=== PATIENT | female | born 1985 | race African-American/Black ===

== ENCOUNTER 2018-12-27 22:54 | Emergency (ER) | payer SELFPAY ==
[2018-12-27 23:55] LABS: Bilirubin Negative (Negative); Blood, Urine Negative (Negative); Clarity CLOUDY (Clear); Glucose, Urine (Dipstick) Negative (Negative); Leukocyte Negative (Negative); Nitrite Negative (Negative); Protein, Urine (Dipstick) 30 mg/dL (Neg-Trace); Specific Gravity, Urine 1.027 (1.002-1.036); Urobilinogen 0.2 mg/dL (0.2-1.0); pH, Urine 5.5 (5.0-9.0)
[2018-12-27 23:57] LABS: Bacteria/HPF None Seen HPF (None Seen); Hyaline Casts/LPF 7-10 HYALINE CAST LPF (0-3 Hyaline); Pathc Cast-AUWi Flag 1.08 (0-2.49)
[2018-12-28 00:05] LABS: #Eosinphils 0.1 thou/uL (0.0-0.7); #Lymphocytes 1.3 thou/uL (1.20-3.40); #Monocytes 0.6 thou/uL (0.11-0.59); #Neutrophils 3.9 thou/uL (1.40-6.50); %Eosinophils 1.3 % (0.0-10.0); %Lymphocytes 22.6 % (21.0-51.0); %Monocytes 9.9 % (0.0-10.0); %Neutrophils 66.1 % (42.0-75.0); Hemoglobin 12.8 g/dL (12.0-16.0); Mean Corpuscular HGB CONC 33.2 g/dL (32.0-36.0); Mean Corpuscular Hemoglobin 27.2 pg (27.0-31.0); Mean Corpuscular Volume 81.9 fL (78.0-98.0); Mean Platelet Volume 6.3 fL (7.4-10.4); Platelet Count 342 thou/uL (130-400); RBC Distribution Width 11.4 % (11.5-14.5); White Blood Cell (WBC) Count 5.9 thou/uL (4.8-10.8)
[2018-12-28 00:16] LABS: BHCG - Serum Negative (NEGATIVE); Pregs Control Background? CLEAR/WHITE (CLR/WHITE); Pregs Control Bar Appear? YES (CONTROL BAR)
[2018-12-28 00:23] LABS: ALT (SGPT) 45 U/L (8-55); AST (SGOT) 35 U/L (5-34); Albumin 4.3 g/dL (3.5-5.0); Alkaline Phosphatase 96 U/L (40-150); Anion Gap 14 mmol/L (10-20); BUN (Urea Nitrogen) 6 mg/dL (7.0-18.7); Bilirubin, Total 0.4 mg/dL (0.2-1.2); Calc. Creatinine Clearance 0 mL/min (70-130); Calcium 9.8 mg/dL (7.8-10.44); Carbon Dioxide 26 mmol/L (22-29); Chloride 100 mmol/L (98-107); Estimated GFR-MDRD 88; Globulin 4.9 g/dL (2.4-3.5); Glucose 122 mg/dL (70-105); Lipase 8 U/L (8-78); Potassium 3.8 mmol/L (3.5-5.1); Protein, Total 9.2 g/dL (6.0-8.3); Sodium 136 mmol/L (136-145)
[2018-12-28] MEDS ORDERED: Promethazine 25 MG TAB ONE (01:50)
== END 2018-12-28 02:49 | disposition home or self-care (01) ==
LOC: ERS 22:54
DX: R11.2 Nausea with vomiting, unspecified (principal); R19.7 Diarrhea, unspecified; R10.13 Epigastric pain; F32.9 Major depressive disorder, single episode, unspecified
CPT/HCPCS: 36415; 80053; 81003; 81015; 83690; 84703; 85025; 99284; Q0169

== ENCOUNTER 2018-12-30 19:21 | Observation (INO) | payer SELFPAY ==
[~2018-12-30 19:21] MED LIST: ISOVUE-370 76%-LOCM 1 ML ONE
[2018-12-30 19:49] LABS: #Eosinphils 0.1 thou/uL (0.0-0.7); #Lymphocytes 1.6 thou/uL (1.20-3.40); #Monocytes 0.7 thou/uL (0.11-0.59); #Neutrophils 4.2 thou/uL (1.40-6.50); %Basophils 0.4 % (0.0-1.0); %Eosinophils 1.2 % (0.0-10.0); %Lymphocytes 24.3 % (21.0-51.0); %Monocytes 10.8 % (0.0-10.0); %Neutrophils 63.3 % (42.0-75.0); Mean Corpuscular HGB CONC 32.5 g/dL (32.0-36.0); Mean Corpuscular Hemoglobin 26.8 pg (27.0-31.0); Mean Corpuscular Volume 82.4 fL (78.0-98.0); Mean Platelet Volume 6.4 fL (7.4-10.4); Platelet Count 340 thou/uL (130-400); RBC Distribution Width 11.5 % (11.5-14.5); Red Blood Cell (RBC) Count 4.87 mill/uL (4.20-5.40); White Blood Cell (WBC) Count 6.6 thou/uL (4.8-10.8)
[2018-12-30] MEDS ORDERED: Promethazine HCl 25 MG/ML VIAL ONE (19:57)
[2018-12-30] MEDS ORDERED: Morphine 4 MG/ML VIAL ONE (19:57)
--- NOTE | 2018-12-30 20:00 | RAD ---
AP view chest. HISTORY: Arrhythmia AP view chest is obtained. The lungs are well aerated. No evidence of active intrathoracic disease se en. IMPRESSION: normal one view chest.
[2018-12-30 20:02] LABS: BHCG - Serum Negative (NEGATIVE); Pregs Control Background? CLEAR/WHITE (CLR/WHITE); Pregs Control Bar Appear? YES (CONTROL BAR)
[2018-12-30 20:11] LABS: ALT (SGPT) 48 U/L (8-55); AST (SGOT) 40 U/L (5-34); Albumin 4.4 g/dL (3.5-5.0); Alkaline Phosphatase 88 U/L (40-150); Anion Gap 16 mmol/L (10-20); BUN (Urea Nitrogen) 10 mg/dL (7.0-18.7); Bilirubin, Total 0.6 mg/dL (0.2-1.2); Calc. Creatinine Clearance 0 mL/min (70-130); Calcium 9.8 mg/dL (7.8-10.44); Carbon Dioxide 24 mmol/L (22-29); Chloride 96 mmol/L (98-107); Estimated GFR-MDRD 90; Glucose 108 mg/dL (70-105); Lipase 17 U/L (8-78); Potassium 3.4 mmol/L (3.5-5.1); Protein, Total 9.4 g/dL (6.0-8.3); Sodium 133 mmol/L (136-145)
[2018-12-30 20:31] LABS: Bilirubin Small (Negative); Blood, Urine Negative (Negative); Clarity CLOUDY (Clear); Glucose, Urine (Dipstick) Negative (Negative); Leukocyte Negative (Negative); Nitrite Negative (Negative); Protein, Urine (Dipstick) 100 mg/dL (Neg-Trace); Specific Gravity, Urine 1.031 (1.002-1.036); pH, Urine 5.5 (5.0-9.0)
[2018-12-30 20:32] LABS: Bacteria/HPF None Seen HPF (None Seen)
[2018-12-30 20:33] LABS: Hyaline Casts/LPF 0-3 HYALINE CAST LPF (0-3 Hyaline)
--- NOTE | 2018-12-30 21:24 | CT ---
Contrast-enhanced images abdomen pelvis. HISTORY: Abdominal pain. Contrast-enhanced images of the abdomen pelvis demonstrate the lung bases to be unremarkable. No evidence of free intraperitoneal air seen. The liver, spleen, gallbladder, pancreas, adrenal gland s and kidneys are unremarkable. Note distended evidence of small bowel seen. A normal appendix is visualized. The colon is unremarkable and decompressed. No significant evidence of vascular abnormality seen. The uterus and ovaries are unremarkable. Mild inguinal lymphadenopathy is present. IMPRESSION: unremarkable contrast-enhanced CT images of the abdomen pelvis.
[2018-12-30 22:01] LABS: Medtox Reader # READER 4; THC/Cannabinoid Screen Detected (NotDetected)
[2018-12-30 22:02] LABS: Amphetamine Not Detected (NotDetected); Barbiturates Screen Not Detected (NotDetected); Benzodiazepine Screen Not Detected (NotDetected); Cocaine Metabolite Screen Not Detected (NotDetected); Medtox Control Line Valid? VALID (VALID); Methadone Not Detected (NotDetected); Methamphetamine Not Detected (NotDetected); Opiate Screen Not Detected (NotDetected); Oxycodone Screen Not Detected (NotDetected); Phencyclidine (PCP) Not Detected (NotDetected); Tricyclic Screen Not Detected (NotDetected)
--- NOTE | 2018-12-30 22:26 | PDOC.FPRHP ---
- History of Present Illness Chief Complaint: nausea, vomiting, abdominal pain History of Present Illness: The patient is a 33YO AAF with no significant PMH who presented to the ED with a CC of persistent nausea and vomiting with associated abdominal pain that has been ongoing since Sunday. Per the patient, she was in her usual state of health until Sunday morning when she woke up feeling nauseous. She states that depsite this she went to work but the nausea persisted. Around 16:00 on Sunday, she started vomiting and could not stop. Per chart review, she vomited about 7- 8 times and therefore decided to proceed to the ER for further evaluation. She reported some associated epigastric pain at that time as well. She describes the pain as constant, sharp, and nonradiating in nature that is relieved with laying on her side but worsening by laying flat or sitting completely upright. The patient reports being given a dose of IV phenergan which relieve her nausea and vomiting and was then sent home with a phenergan prescription. The patient actually reported gradual improvement in her symptoms over the next 2 days; however, while at work today she again developed a slowly worsening epigastric abdominal pain that increased to a level of 10/10 in severity by ~1600 when she get home. She tried taking a dose of phenergan for the pain but vomited shortly after. The patient stated that she then developed some chest pain along with her abdominal pain so she decided to go to the ER again for further evaluation. The patient denied any associated fever/chills, hematemesis, diarrhea, hematochezia, melena, or recent sick contacts. She also denied any orthostasis as well as chest pain at the time of the exam. Of note, the patient was questioned by myself and the admitting ER practitioner regarding drug use and denied any drug use on both occasions. ED Course: 4mg IV morphine, 20mg bentyl, 25mg IV phenergan, 1L NS - Allergies/Adverse Reactions Allergies Allergy/AdvReac Type Severity Reaction Status Date / Time ondansetron [From Zofran] AdvReac Unknown Nausea Verified 12/31/18 00:29 - Home Medications Medication Instructions Recorded Confirmed Type Acetaminophen [Tylenol Regular 650 mg PO Q4H PRN tab 12/31/18 Rx Strength] Ondansetron [Zofran ODT] 8 mg PO Q6HR PRN #20 tab 12/31/18 Rx Promethazine HCl [Phenergan] 25 mg NV Q6H PRN #10 supp 12/31/18 Rx - History PMHx: none PSHx: none FHx: Mother & grandmother- HTN Social: Lives alone in [place]. Denies any tobacco use. Reports using MJ only once 2 months ago. Reports occasionally drinking a glass of wine. - Review of Systems General: reports: weight/appetite/sleep changes, fatigue. denies: fever/chills Eyes: denies: vision changes ENT: reports: other (no sore throat). denies: nasal congestion Respiratory: denies: cough, shortness of breath Cardiovascular: denies: chest pain, palpitation Gastrointestinal: reports: nausea, vomiting, abdominal pain. denies: diarrhea, constipation, GI bleeding Genitourinary: reports: other (no hematuria). denies: dysuria Skin: denies: rashes, lesions Musculoskeletal: reports: pain. denies: arthritis/arthralgias Neurological: denies: syncope, seizure Psychological: denies: anxiety, depression - Vital signs BP: 130/102 HR: 94 RR: 16 Tmax: 99.5F Pox: 97% on RA Wt: 92.99kg - Physical Exam Constitutional: NAD, awake, alert and oriented, well developed HEENT: normocephalic and atraumatic, conjunctiva clear, grossly normal vision, grossly normal hearing, MMM, oropharynx clear Neck: supple, FROM Heart: RRR, normal S1/S2, no murmurs/rubs/gallops, pulses present, no edema Lungs: CTAB, no respiratory distress, good air movement, no rales/rhonchi, no wheezing, no retractions Abdomen: soft, other (hypoactive bowel sounds with TTP all across upper abdomen but no rebound or guarding noted) Musculoskeletal: normal structure, ROM grossly normal Neurological: no focal deficit, CN II-XII intact (grossly) Skin: no rash/lesions, good turgor, capillary refill <2 seconds, no jaundice Heme/Lymphatic: no unusual bruising or bleeding, no purpura, no petechia Psychiatric: normal mood and affect, good judgment and insight, intact recent and remote memory FMR H&P: Results - Labs Result Diagrams: 12/30/18 19:41 12/31/18 04:30 Lab results: WBC 6.6 thou/uL (4.8-10.8) 12/30/18 19:41 Hgb 13.0 g/dL (12.0-16.0) 12/30/18 19:41 Hct 40.2 % (36.0-47.0) 12/30/18 19:41 MCV 82.4 fL (78.0-98.0) 12/30/18 19:41 Plt Count 340 thou/uL (130-400) 12/30/18 19:41 Neutrophils % 63.3 % (42.0-75.0) 12/30/18 19:41 Sodium 133 mmol/L (136-145) L 12/30/18 19:41 Potassium 3.4 mmol/L (3.5-5.1) L 12/30/18 19:41 Chloride 96 mmol/L (98-107) L 12/30/18 19:41 Carbon Dioxide 24 mmol/L (22-29) 12/30/18 19:41 BUN 10 mg/dL (7.0-18.7) 12/30/18 19:41 Creatinine 0.89 mg/dL (0.6-1.1) 12/30/18 19:41 Glucose 108 mg/dL (70-105) H 12/30/18 19:41 Calcium 9.8 mg/dL (7.8-10.44) 12/30/18 19:41 Total Bilirubin 0.6 mg/dL (0.2-1.2) 12/30/18 19:41 AST 40 U/L (5-34) H 12/30/18 19:41 ALT 48 U/L (8-55) 12/30/18 19:41 Alkaline Phosphatase 88 U/L (40-150) 12/30/18 19:41 Creatine Kinase 125 U/L (29-168) 12/30/18 19:41 Serum Total Protein 9.4 g/dL (6.0-8.3) H 12/30/18 19:41 Albumin 4.4 g/dL (3.5-5.0) 12/30/18 19:41 Lipase 17 U/L (8-78) 12/30/18 19:41 Urine Ketones 80 mg/dL (Negative) H 12/30/18 20:15 Urine Blood Negative (Negative) 12/30/18 20:15 Urine Nitrite Negative (Negative) 12/30/18 20:15 Ur Leukocyte Esterase Negative (Negative) 12/30/18 20:15 Urine RBC 4-6 HPF (0-3) 12/30/18 20:15 Urine WBC 7-10 HPF (0-3) H 12/30/18 20:15 Ur Squamous Epith Cells 4-6 HPF (0-3) H 12/30/18 20:15 Urine Bacteria None Seen HPF (None Seen) 12/30/18 20:15 - EKG Interpretation EKG: NSR - Radiology Interpretation Chest x-ray Status: report reviewed by me (unremarkable) CT scan - abdomen Status: report reviewed by me (unremarkable) FMR H&P: A/P - Problem List (1) Nausea and vomiting Status: Acute Code(s): R11.2 - NAUSEA WITH VOMITING, UNSPECIFIED (2) Hyponatremia Status: Acute Code(s): E87.1 - HYPO-OSMOLALITY AND HYPONATREMIA (3) Hypokalemia Status: Acute Code(s): E87.6 - HYPOKALEMIA (4) Ketonuria Status: Acute Code(s): R82.4 - ACETONURIA - Plan 33YOF with no significant PMH who presented to the ED complaining of persistent nausea and vomiting with associated abdominal pain that has been ongoing since Sunday. Nausea and vomiting 2/2 viral gastroenteritis vs. cannabis hyperemesis syndrome: Most likely etiologies s/p lab & imaging work-up include viral gastroenteritis vs. cannabis hyperemesis syndrome. Patient had a low grade temp on presentation and was tachycardic but had no white count and LFTs were WNLs. However, an abdominal CT was obtained which was WNLs ruling out any intra-abdominal infection that could explain her symptoms. Her UA also showed only ketones and protein with no signs of a UTI. Lastly, her UDS was + for MJ but the patient denied any use on initial questioning. - Will continue mIVFs with NS @ 130mL/hr & try PRN IV zofran Q6H despite patient reporting vomiting as an allergic reaction to zofran as patient is likely reporting this to get phenergan instead. Will also try a GI cocktail to help with her abdominal pain. Otherwise, will have PRN PO and NV tylenol available as patient received morphine and bentyl in the ED. - Will continue to monitor electrolytes and LFTs with a repeat CMP in the AM. Mild hypovlemia: - Will continue mIVFs with NS @ 130mL/hr as patient is s/p 1L of NS in the ED. hypokalemia: - K 3.4 on presentation. Will add 20mEq in her IVFs and recheck in the AM. hyponatremia: - Na of 133 on presentation. Likely 2/2 vomiting and decreased PO intake. - Will get a repeat CMP in the AM to monitor for improvement. Ketonuria: - UA significant for 80 ketones c/w hypovolemia from nausea, vomiting, and decreased PO intake. - s/p 1L NS in the ER. Will continue mIVFs w/ NS @ 130mL/hr overnight. Elevated AST: - AST mildly elevated at 40 on presentation but other LFTs were WNLs. Likely 2/ 2 mild hypovolemia. Will hydrate overnight with IVFs and recheck in the AM. Marijuana Use: - Patient not forthcoming regarding this initially but reported a single remote use ~2 months ago. However, UDS was + on admission for cannabis. Will encourage cessation. Dispo: Will admit to medical obs overnight and continue IVF resuscitation and IV nausea control. Anticipated LOS <2 midnights pending clinical course. GI PPx: none DVT PPx: lovenox IVFs: LR @ 130mL/hr Abx: none indicated CODE STATUS: FULL CODE FMR H&P: Upper Level - Pertinent history 33 yo AAF with no reported PMH presenting to the ER with nausea and vomiting over the last few days. Pt denies illicit drug use but UDS positive for marijuana. - Pertinent findings VSS Gen: NAD CV: RRR Resp: CTAB - Plan Date/Time: 12/30/186 I, Perico Hernandez MD PGY3, have evaluated this patient and agree with findings/ plan as outlined by internet retailer resident. Pertinent changes/additions are listed here. 1. Cannabis Hyperemesis Syndrome -Admit to observation for symptomatic management and IVF resuscitation. FULL code PPx: Lovenox for VTE, no GI indicated. disposition: Admit to observation for anticipated length of stay less than two midnights, pending clinical course. Addendum - Attending - Attending Attestation Date/Time: 12/31/181901 I personally evaluated the patient and discussed the management with Dr. Jones and David last night at time of admission. See my separate note. I agree with the History, Examination, Assessment and Plan documented above with any addition or exceptions noted below.
[2018-12-31] MEDS ORDERED: Promethazine HCl 25 MG/ML VIAL IM/IV PRN (00:11)
[2018-12-31] MEDS ORDERED: Ondansetron PF 4 MG/2 ML Vial IVP PRN (00:12)
[2018-12-31] MEDS ORDERED: Acetaminophen 650 MG Suppository PR PRN (00:12)
[2018-12-31] MEDS ORDERED: Acetaminophen 325 MG TAB PO PRN (00:12)
[2018-12-31] MEDS ORDERED: Sodium Chloride 0.9% 1,000 ML IV SCH (00:15)
--- NOTE | 2018-12-31 00:26 | PDOC.EVN ---
Event Note - Event Note Event Note: Date/Time: 12/31/18 0025 I personally evaluated the patient and discussed the management with Dr. Jones. The H&P is pending. I agree with the History, Examination, Assessment and Plan as discussed.
[2018-12-31] MEDS ORDERED: Potassium Chloride 20 MEQ in Premix Bag 1 BAG IVPB SCH (00:30)
[2018-12-31] MEDS ORDERED: Lidocaine 2% Viscous Solution 10 ML, Aluminum & Magnesium Hydroxide 30 ML SSW SCH (00:30)
[2018-12-31 00:35] VITALS: BMI 34.0
[2018-12-31] MEDS: Sodium Chloride 0.9% 1,000 ML IV SCH ×3 (01:22→12:29)
[2018-12-31 06:23] LABS: ALT (SGPT) 42 U/L (8-55); AST (SGOT) 36 U/L (5-34); Albumin 4.1 g/dL (3.5-5.0); Alkaline Phosphatase 82 U/L (40-150); Anion Gap 15 mmol/L (10-20); BUN (Urea Nitrogen) 6 mg/dL (7.0-18.7); Bilirubin, Total 0.5 mg/dL (0.2-1.2); Calc. Creatinine Clearance 151 mL/min (70-130); Calcium 9.3 mg/dL (7.8-10.44); Carbon Dioxide 21 mmol/L (22-29); Chloride 99 mmol/L (98-107); Estimated GFR-MDRD Greater than 90; Globulin 4.6 g/dL (2.4-3.5); Glucose 99 mg/dL (70-105); Potassium 4.4 mmol/L (3.5-5.1); Protein, Total 8.7 g/dL (6.0-8.3); Sodium 131 mmol/L (136-145)
--- NOTE | 2018-12-31 07:56 | PDOC.FM ---
- Subjective Subjective: Pt feeling better this AM, tolerating PO water in small amounts, no vomiting since yesterday, has not tried any foods yet. Reports improved but persistent abdominal pain. - Objective Vital Signs & Weight: Vital Signs (12 hours) Temp Pulse Resp BP Pulse Ox 12/31/18 03:13 97.9 F 75 16 145/89 H 96 12/30/18 23:53 98.2 F 73 16 149/87 H 97 Weight Weight 92.669 kg I&O: 12/30/18 12/31/18 01/01/19 06:59 06:59 06:59 Intake Total 820 Output Total 750 Balance 70 Result Diagrams: 12/30/18 19:41 12/31/18 04:30 Phys Exam - Physical Examination Constitutional: NAD HEENT: moist MMs, sclera anicteric Neck: supple, full ROM Respiratory: no wheezing, no rales, clear to auscultation bilateral Cardiovascular: RRR, no significant murmur Gastrointestinal: soft mild epigastric ttp Musculoskeletal: no edema, pulses present Neurological: normal sensation, moves all 4 limbs Lymphatic: no nodes Psychiatric: normal affect, A&O x 3 Skin: no rash, normal turgor Dx/Plan (1) Nausea and vomiting Code(s): R11.2 - NAUSEA WITH VOMITING, UNSPECIFIED Status: Acute (2) Hypokalemia Code(s): E87.6 - HYPOKALEMIA Status: Acute (3) Hyponatremia Code(s): E87.1 - HYPO-OSMOLALITY AND HYPONATREMIA Status: Acute (4) Ketonuria Code(s): R82.4 - ACETONURIA Status: Acute - Plan Plan: Nausea and vomiting 2/2 viral gastroenteritis vs. cannabis hyperemesis syndrome A- Improved, etiology likely cannabis induced vs viral gastroenteritis. WBC wnl. CT abd/pelv wnl. hydrated on exam. P- Will continue mIVFs with NS @ 130mL/hr, wean with improved PO intake -PRN IV zofran Q6H (despite patient reporting vomiting as an allergic reaction to zofran, pt has had improvement thus far with zofran in hospital) -PRN PO and MS tylenol Elevated AST A- AST mildly elevated at 40 on presentation but other LFTs were WNLs. Likely 2/ 2 mild hypovolemia. P- continue hydration -consider recheck this PM vs f/u outpt hyponatremia A- likely hypovolemic considering hpi, Na of 133 on presentation-> 131. P- continue fluid resuscitation Ketonuria A- UA significant for 80 ketones, pt likely in ketosis 2/2 decreased PO intake etc. P- continue prn zofran, encourage PO intake Mild hypovlemia -per plan above hypokalemia: -resolved Marijuana Use -Patient not forthcoming regarding this initially but reported a single remote use ~2 months ago. However, UDS was + on admission for cannabis. Will encourage cessation. Dispo: possible DC today pending good PO intake CODE STATUS: FULL CODE Addendum - Attending - Attending Attestation Date/Time: 12/31/18 [id number] I personally evaluated the patient and discussed the management with Dr. Arteaga. I agree with the History, Examination, Assessment and Plan documented above with any addition or exceptions noted below. Patient here with suspected cannabinoid hyperemesis. She has had minimal vomiting since admission. Currently tolerated clears. Will ensure she is able to tolerate PO today and suspect discharge later today with anti-emetics and suggestion that she avoid cannibis. Mild hyponatremic that is due to hypovolemia as well as poor solute intake.
[2018-12-31] MEDS ORDERED: Enoxaparin Sodium 40 MG/0.4 ML SYRINGE SC SCH (09:00)
[2018-12-31] MEDS ORDERED: Promethazine HCl 25 MG SUPP PR PRN (10:12)
[2018-12-31 12:01] VITALS: BP 145/85; TEMP 97.9
--- NOTE | 2019-01-01 11:19 | DIS ---
DATE OF ADMISSION: 12/30/2018 DATE OF DISCHARGE: 12/31/2018 RESIDENT: Christiano Arteaga MD ADMITTING ATTENDING: Blayne Carl MD DISCHARGE ATTENDING: Chacho Garza MD CONSULTS: None. PROCEDURES: 1. On 10/30/2018, chest x-ray, impression, normal one-view chest. 2. On 12/30/2018, abdomen and pelvis CT, impression, unremarkable contrast enhanced CT images of the abdomen and pelvis. DISCHARGE MEDICATIONS: 1. Tylenol 650 mg p.o. q.4 hours p.r.n. 2. Zofran 8 mg oral dissolving tablet p.o. q.6 hours p.r.n. 3. Phenergan 25 mg per rectum suppository q.6 hours p.r.n. DISCONTINUED MEDICATIONS: Promethazine 12.5 mg p.o. p.r.n. PRIMARY DIAGNOSES: 1. Nausea and vomiting secondary to viral gastroenteritis. 2. Cannabis hyperemesis syndrome. SECONDARY DIAGNOSES: 1. Hyponatremia. 2. Ketonuria. 3. Elevated AST. 4. Mild hypovolemia. 5. Hypokalemia. 6. Marijuana use. HISTORY OF PRESENT ILLNESS/HOSPITAL COURSE: This is a 33-year-old female who presented with a history of nausea and vomiting with decreased p.o. intake. The patient was hypokalemic on presentation and so was admitted for observation. Pertinent lab findings were UDS positive for marijuana though the patient persistently denied smoking. The patient was informed that vomiting and nausea could be secondary to marijuana smoking and cannabis hyperemesis syndrome. Eventually with Zofran and Phenergan, the patient's nausea and vomiting did resolve, and the patient tolerated p.o. intake, and thus was deemed stable for discharge. Of note, the patient did report allergy to Zofran and described her reaction as being nausea and vomiting after taking Zofran while she had nausea and vomiting, also prior to taking Zofran. The patient did receive doses of Zofran in the hospital and had no such reaction and in fact had resolution of symptoms with Zofran, so the patient was informed that this was not a true allergy. DISPOSITION: Stable. DISCHARGE INSTRUCTIONS: 1. Location: Home. 2. Activity: As tolerated. 3. Diet: Advance as tolerated. No restrictions. 4. Followup: Follow up with primary care provider in 7 days. Job ID: [id number]
== END 2018-12-31 14:27 | disposition home or self-care (01) ==
LOC: ERS 19:21 → 2SW 22:23
PROVIDERS: ADMIT Family Medicine; ATTEND Family Medicine
DX: A08.4 Viral intestinal infection, unspecified (principal); F12.988 Cannabis use, unspecified with other cannabis-induced disorder; R11.2 Nausea with vomiting, unspecified; E87.1 Hypo-osmolality and hyponatremia; E87.6 Hypokalemia; E86.1 Hypovolemia; R82.4 Acetonuria; Z88.8 Allergy status to other drugs, medicaments and biological substances
CPT/HCPCS: 36415; 71045; 74177; 80053; 80306; 81003; 81015; 82550; 83690; 84703; 85025; 93005; 96361; 96365; 96366; 96367; 96372; 96375; G0378; J0500; J1650; J2270; J2550; J3480; Q9966

== ENCOUNTER 2021-09-20 08:01 | Emergency (ER) | payer SELFPAY ==
[2021-09-20 13:09] LABS: SARS-CoV-2 PCR by NAA Not Detected (NotDetected)
== END 2021-09-20 09:14 | disposition home or self-care (01) ==
LOC: ERS 08:01
DX: R05.9 Cough, unspecified (principal); J02.9 Acute pharyngitis, unspecified; R09.81 Nasal congestion; Z20.822 Contact with and (suspected) exposure to COVID-19
CPT/HCPCS: 99283; U0003; U0005

== ENCOUNTER 2024-01-03 23:16 | Emergency (ER) | payer SELFPAY ==
[2024-01-04 00:23] LABS: Bacteria/HPF None Seen HPF (None Seen); Bilirubin Negative (Negative); Blood, Urine Negative (Negative); CAUTI Indications for Culture Dysuria,urgency,freq; Clarity Clear (Clear); Glucose, Urine (Dipstick) Normal (Negative); Ketone, Urine Negative (Negative); Leukocyte Negative Leu/uL (Negative); Nitrite Negative (Negative); Pregnancy Test - Urine (BHCG) Negative (Negative); Protein, Urine (Dipstick) Negative (Neg-Trace); RBC/HPF None Seen HPF (0-3); Specific Gravity, Urine 1.005 (1.002-1.036); Squamous Epithelial 0-3 HPF (0-3); Urobilinogen Normal mg/dL (Less than 2); WBC/HPF 0-3 HPF (0-3); pH, Urine 5.5 (5.0-9.0)
[2024-01-04 00:24] LABS: Pregu Control Background? CLEAR/WHITE (CLR/WHITE); Pregu Control Bar Appear? YES (CONTROL BAR); Specific Gravity 1.005 (1.002-1.036); Urine Culture Reflex No No
[2024-01-04 00:30] LABS: Amphetamine Not Detected (NotDetected); Barbiturates Screen Not Detected (NotDetected); Benzodiazepine Screen Not Detected (NotDetected); Cocaine Metabolite Screen Not Detected (NotDetected); Methadone Not Detected (NotDetected); Methamphetamine Not Detected (NotDetected); Opiate Screen Not Detected (NotDetected); Oxycodone Screen Not Detected (NotDetected); Phencyclidine (PCP) Not Detected (NotDetected); THC/Cannabinoid Screen Not Detected (NotDetected); Tricyclic Screen Not Detected (NotDetected)
[2024-01-04 01:12] LABS: #Basophils Less than 0.03 10x3/uL (0.0-0.2); %Basophils 0.3 % (0.0-1.0); %Lymphocytes 35.3 % (21.0-51.0); %Monocytes 6.9 % (0.0-10.0); Hematocrit 35.6 % (36.0-47.0); Hemoglobin 11.7 g/dL (12.0-16.0); Mean Corpuscular HGB CONC 32.9 g/dL (32.0-36.0); Mean Corpuscular Hemoglobin 27.8 pg (27.0-31.0); Mean Corpuscular Volume 84.6 fL (78.0-98.0); Mean Platelet Volume 8.6 fL (7.4-10.4); Platelet Count 319 10x3/uL (130-400); RBC Distribution Width 12.8 % (11.5-14.5); Red Blood Cell (RBC) Count 4.21 mill/uL (4.20-5.40)
[2024-01-04 01:41] LABS: ALT (SGPT) 13 U/L (8-55); AST (SGOT) 18 U/L (5-34); Albumin 3.5 g/dL (3.5-5.0); Alkaline Phosphatase 102 U/L (40-110); Anion Gap 17 mmol/L (10-20); BUN (Urea Nitrogen) 9 mg/dL (7.0-18.7); Bilirubin, Total 0.2 mg/dL (0.2-1.2); Calc. Creatinine Clearance 0 mL/min (70-130); Calcium 9.1 mg/dL (7.8-10.44); Carbon Dioxide 21 mmol/L (22-29); Chloride 106 mmol/L (98-107); Estimated GFR 91; Globulin 4.6 g/dL (2.4-3.5); Glucose 115 mg/dL (70-105); Potassium 3.6 mmol/L (3.5-5.1); Protein, Total 8.1 g/dL (6.0-8.3); Sodium 140 mmol/L (136-145)
[2024-01-04 01:42] LABS: Acetaminophen Less than 10 mcg/mL (10.0-30.0); Alcohol 110.9 mg/dL (Less than 10); Salicylate Less than 8.0 mg/dL (15.0-30.0)
== END 2024-01-04 11:46 | disposition home or self-care (01) ==
LOC: ERS 23:16 → EEVIPCON 23:16 → ERS 01-04 11:46
DX: R45.851 Suicidal ideations (principal); F10.129 Alcohol abuse with intoxication, unspecified
CPT/HCPCS: 36415; 80053; 80306; 80307; 81001; 81025; 85025; 93005